=== PATIENT | female | born 1995 | race Two or more races ===

== ENCOUNTER 2025-01-26 08:42 | Inpatient (IN) | payer MEDICAID ==
[2025-01-24 15:14] LABS: Hematocrit 40.9 % (36.0-46.0); Hemoglobin 14.0 g/dL (12.2-16.2); Mean Corpuscular Hemoglobin 30.7 pg (28.0-32.0); Mean Corpuscular Volume 89.7 fL (80.0-100.0); Nucleated Red Blood Cells % 0.1 %; Urine Protein, UAD Negative (Negative)
[2025-01-24 15:33] LABS: INR 0.95 (0.9-1.15); Partial Thromboplastin Time 26.5 SEC (24.5-34.5); Prothrombin Time 10.1 sec (9.3-11.8)
[2025-01-24 15:49] LABS: Alanine Aminotransferase 17 U/L (7-40); Albumin 4.8 g/dL (3.2-4.8); Alkaline Phosphatase 77 U/L (46-116); Anion Gap 10 (5-15); BUN/Creatinine Ratio 10.3 (10.0-20.0); Blood Urea Nitrogen 9 mg/dL (9-23); Calcium 9.8 mg/dL (8.7-10.4); Carbon Dioxide 27 mmol/L (20-31); Chloride 104 mmol/L (98-107); Potassium 4.2 mmol/L (3.5-5.1); Sodium 141 mmol/L (136-145); Total Protein 8.1 g/dL (5.7-8.2)
[2025-01-24 15:50] LABS: Bilirubin, Total 0.3 mg/dL (0.2-1.0); Glucose 89 mg/dL (74-106)
[~2025-01-26] VITALS: Ht 154.9 cm; Wt 99.6 kg
[~2025-01-26 08:42] MED LIST: CHOLCAP4 PO
[2025-01-26] MEDS: ceFAZolin 2 GM/D5W50ml 50 ML IV ONE (08:55)
[2025-01-26] MEDS ORDERED: MIDAZOLAM HCL 2MG/2ML 2ml VIAL (1mg/ml) ONE (10:45)
[2025-01-26] MEDS ORDERED: HYDROmorphone HCL 2 MG/ML VL/or syr ONE (10:45)
[2025-01-26] MEDS ORDERED: fentaNYL CITRATE 100 MCG/2 ML VL ONE (10:45)
[2025-01-26] MEDS ORDERED: LIDOCAINE 2% (LOCAL ANESTH.) PF 5ml SDV ONE (10:46)
[2025-01-26] MEDS ORDERED: PROPOFOL 10 MG/ML 20 ML IV ONE (10:46)
[2025-01-26] MEDS ORDERED: KETOROLAC TROMETH 30 MG/ML 1ML VIAL ONE (10:46)
[2025-01-26] MEDS ORDERED: ONDANSETRON HCL 4 MG/2 ML VIAL ONE (10:46)
[2025-01-26] MEDS ORDERED: GLYCOPYRROLATE 0.2 MG/ML 1ML VIAL ONE (10:46)
[2025-01-26] MEDS ORDERED: SUGAMMADEX 200mg/2ml Vial (100MG/ML) IV ONE (12:37)
[2025-01-26] MEDS: LIDOCAINE W/ EPINEPHRINE 1% 20ML VIAL ONE (12:37)
[2025-01-26] MEDS: BUPIVACAINE 0.5% P/F INJ 10 ML VIAL ONE (12:37)
[2025-01-26 12:58] VITALS: O2SAT 100
[2025-01-26] MEDS ORDERED: ONDANSETRON HCL 4 MG/2 ML VIAL IV PRN ×2 (13:15→17:00)
[2025-01-26] MEDS ORDERED: HYDROmorphone HCL 2 MG/ML VL/or syr IV PRN (13:15)
[2025-01-26] MEDS ORDERED: ACETAMINOPHEN IV 1000 MG/100ML (10MG/ML) IV ONE (13:15)
--- NOTE | 2025-01-26 13:36 | DVHOP ---
DATE OF SURGERY: 01/26/2025 PREOPERATIVE DIAGNOSES: * Cholelithiasis. * Cholecystitis POSTOPERATIVE DIAGNOSES: * Cholelithiasis. * Cholecystitis. SURGEON: Olivier Corley MD. SALES AND SERVICE ADVISOR: Homero Ashley. ANESTHESIA: General endotracheal, Dr. Rico. PROCEDURES: * Laparoscopy. * Laparoscopic cholecystectomy DESCRIPTION OF PROCEDURE: Under general endotracheal anesthesia with the patient's skin prepped and draped, a supraumbilical incision was made and Veress needle inserted into the peritoneal cavity by the hanging drop technique in order to establish pneumoperitoneum to 15 mmHg pressure by insufflation with carbon dioxide. With the abdomen fully distended, the needle was removed and replaced by a 5 mm trocar port through which a 0-degree viewing laparoscope was inserted and under direct vision, a 5 mm port was inserted through the anterior axillary line on the right flank at the level of the umbilicus and through the subxiphoid skin in the midline. Respectively, a 10 mm port inserted through that incision. Instrumentation was introduced. Laparoscopy was performed revealing no obvious unexpected pathology. The gallbladder was placed on tension. The cystic duct and cystic artery were identified, circumferentially dissected, skeletonized and traced into the hepatic or cystic triangle to minimize the potential for inadvertent injury to the common bile duct. The cystic duct and cystic artery were then divided between metallic clips close to the gallbladder again attempting to avoid any injury to the common bile duct. Following division of the cystic duct and cystic artery, the gallbladder was resected from its liver bed with electrocautery and traction. The fully mobilized gallbladder was removed from the peritoneal cavity by placement in a specimen extraction bag, which was removed through the subxiphoid midline 10 mm port sites. The right upper quadrant was then irrigated. Irrigant was aspirated. Hemostasis was meticulously accomplished and found to be complete. At the termination of the procedure, there was no evidence of bleeding from either the liver bed or from the port sites. Instrumentation was then withdrawn. Pneumoperitoneum was evacuated. Fascial defect closed using #0 Vicryl. The wound was approximated using Monocryl sutures, Dermabond, glue and Steri-Strips. The patient remained stable throughout the procedure and left the operating room following an accurate needle and sponge count. Her , Ten, was thoroughly informed in the waiting area. MD SUSIE Rascon/NATAN TID: [id number] RECEIPT: [id number]
[2025-01-26] MEDS ORDERED: ceFAZolin 1GM/50ML 50 ML IV SCH (14:00)
[2025-01-26] MEDS ORDERED: MORPHINE SULFATE INJ 2 MG/ml SYRG IV PRN (14:30)
[2025-01-26] MEDS ORDERED: NITROGLYCERIN 0.4 MG SL TAB SL PRN (14:30)
[2025-01-26 16:45] VITALS: BP 111/70; PULSE 104; RESP 18; TEMP 98.8; O2SAT 100
--- NOTE | 2025-01-26 16:50 | DVHHP2 ---
Review of Systems Allergies: Coded Allergies: NO KNOWN ALLERGIES (Unverified , 01/24/25) Medications Current Medications Medications Dose Ordered Sig/Lucila Route Start Time Stop Time Status Last Admin Dose Admin Metronidazole 100 ml @ 100 mls/hr Q8HR IV 01/26/25 14:00 01/26/25 13:43 100 MLS/HR Potassium Chloride/Dextrose/ Sod Cl 1,000 ml @ 100 mls/hr Q10H IV 01/26/25 15:00 Cefazolin Sodium 50 ml @ 100 mls/hr Q8HR IV 01/26/25 20:00 Nitroglycerin 0.4 mg Q5MINP PRN SL 01/26/25 14:30 Morphine Sulfate 2 mg Q30M PRN IV 01/26/25 14:30 Exam Vital Signs Vital Signs Date Time Temp Pulse Resp B/P (MAP) Pulse Ox O2 Delivery O2 Flow Rate FiO2 01/26/25 14:35 83 14 123/79 (94) 100 01/26/25 14:35 Nasal Cannula 2.0 100 01/26/25 12:58 98.2 98.2 Labs/Xrays Labs Test 01/24/25 14:59 Range/Units White Blood Count 11.0 H 4.4-10.8 10^3/uL Red Blood Count 4.56 4.0-5.20 10^6/uL Hemoglobin 14.0 12.2-16.2 g/dL Hematocrit 40.9 36.0-46.0 % Mean Corpuscular Volume 89.7 80.0-100.0 fL Mean Corpuscular Hemoglobin 30.7 28.0-32.0 pg Mean Corpuscular Hemoglobin Concent 34.2 32.0-36.0 g/dL Red Cell Distribution Width 13.6 11.8-14.3 % Platelet Count 214 140-450 10^3/uL Mean Platelet Volume 11.6 H 6.9-10.8 fL Neutrophils (%) (Auto) 61.5 37.0-80.0 % Lymphocytes (%) (Auto) 28.9 10.0-50.0 % Monocytes (%) (Auto) 6.6 0.0-12.0 % Eosinophils (%) (Auto) 2.4 0.0-7.0 % Basophils (%) (Auto) 0.6 0.0-2.0 % Neutrophils # (Auto) 6.7 1.6-8.6 10 ^3/uL Lymphocytes # (Auto) 3.2 0.4-5.4 10 ^3/uL Monocytes # (Auto) 0.7 0-1.3 10 ^3/uL Eosinophils # (Auto) 0.3 0-0.8 10 ^3/uL Basophils # (Auto) 0.1 0-0.2 10 ^3/uL Nucleated Red Blood Cells 0.1 % Prothrombin Time 10.1 9.3-11.8 sec Prothrombin Time INR 0.95 0.9-1.15 Activated Partial Thromboplast Time 26.5 24.5-34.5 SEC Urine Color Light-yellow Yellow Urine Clarity Clear Clear Urine pH 7.0 5.0-9.0 Urine Specific [place] 1.021 1.001-1.035 Urine Protein Negative Negative Urine Ketones Negative Negative Urine Blood Negative Negative /uL Urine Nitrite Negative Negative Urine Bilirubin Negative Negative Urine Urobilinogen Normal Negative mg/dL Urine Leukocyte Esterase Negative Negative /uL Urine RBC 1 0 - 4 /hpf Urine Microscopic WBC 5 0-5 /HPF Urine Squamous Epithelial Cells Few <5 /hpf Urine Bacteria None seen None Seen /hpf Urine Glucose Normal Normal mg/dL Urine Test Negative Negative Sodium Level 141 136-145 mmol/L Potassium Level 4.2 3.5-5.1 mmol/L Chloride Level 104 98-107 mmol/L Carbon Dioxide Level 27 20-31 mmol/L Anion Gap 10 5-15 Blood Urea Nitrogen 9 9-23 mg/dL Creatinine 0.87 0.550-1.02 mg/dL Glomerular Filtration Rate Calc 91 >90 mL/min BUN/Creatinine Ratio 10.3 10.0-20.0 Serum Glucose 89 74-106 mg/dL Calcium Level 9.8 8.7-10.4 mg/dL Total Bilirubin 0.3 0.2-1.0 mg/dL Aspartate Amino Transferase (AST) 17 13-40 U/L Alanine Aminotransferase (ALT) 17 7-40 U/L Alkaline Phosphatase 77 46-116 U/L Total Protein 8.1 5.7-8.2 g/dL Albumin 4.8 3.2-4.8 g/dL SEPSIS Sepsis Screen Physician Orders Sequential Compression Device (01/26/25 12:51) Abdominal Binder (01/26/25 12:51) Call/Page Hospitalist/Atten Fo (01/26/25 12:51) Page Hospitalist For Admission (01/26/25 12:51) Metronidazole 500mg/100ml (Flagyl 500mg/ (01/26/25 14:00) Oxygen Via Cool Mist Mask (01/26/25 12:51) Clear Liq Diet (01/26/25 Lunch) Ambulate Every 4hours Q4H (01/26/25 12:51) Oxygen By Face Mask (01/26/25 13:01) Threader (01/26/25 13:01) Notify Anesth. For Changes: (01/26/25 13:01) Pulse Ox Assessment (01/26/25 13:01) May Have Head Of Bed Up (01/26/25 13:01) Discharge To Room Per Criteria (01/26/25 13:01) D5w/Sod Chl 0.45%/Kcl 20meq (01/26/25 15:00) Cefazolin 1gm/50ml (Ancef) (01/26/25 20:00) Admit (01/26/25 14:24) Oxygen By Nasal Cannula (01/26/25 14:24) Nitroglycerin Sublingual (Ntrostat Subli (01/26/25 14:30) Morphine Sulfate Injection (01/26/25 14:30) Stat Ekg For Chest Pain (01/26/25 14:24) Notify Md Of Changes From Base (01/26/25 14:24) Emergency Dysrhythmia Protocol (01/26/25 14:24) Hydrocodone-Acet 5/325mg Tab ([place] 5/32 (01/26/25 17:00) Acetaminophen Tablet (Tylenol Tablet) (01/26/25 17:00) Ondansetron Hcl (Zofran) (01/26/25 17:00) Complete Blood Count (01/27/25 06:00) Comprehensive Metabolic Panel (01/27/25 06:00) Vital Signs Date Time Temp Pulse Resp B/P (MAP) Pulse Ox O2 Delivery O2 Flow Rate FiO2 01/26/25 14:35 83 14 123/79 (94) 100 01/26/25 14:35 Nasal Cannula 2.0 100 01/26/25 14:21 Nasal Cannula 2.0 98 01/26/25 14:15 69 14 122/78 (93) 98 01/26/25 13:58 67 14 128/71 (90) 97 01/26/25 13:47 Room Air 0 91 01/26/25 13:43 76 14 128/80 (96) 95 01/26/25 13:28 86 11 130/99 (109) 96 01/26/25 13:25 Room Air 0 96 01/26/25 13:13 103 18 141/84 (103) 98 01/26/25 13:08 104 17 131/79 (96) 100 01/26/25 13:03 106 12 121/80 (94) 100 01/26/25 12:58 98.2 115 12 137/78 (97) 100 98.2 01/26/25 12:58 100 Mask 8.0 Medications Medications Dose Ordered Sig/Lucila Route Start Time Stop Time Status Last Admin Dose Admin Bupivacaine HCl 10 ml STK-MED ONCE .ROUTE 01/26/25 11:26 01/26/25 11:23 DC 01/26/25 12:37 5 ML Lidocaine/ Epinephrine 20 ml STK-MED ONCE .ROUTE 01/26/25 11:27 01/26/25 11:23 DC 01/26/25 12:37 5 ML Metronidazole 100 ml @ 100 mls/hr Q8HR IV 01/26/25 14:00 01/26/25 13:43 100 MLS/HR Assessment/Plan Assessment/Plan SEE DICTATED NOTE Plan discussed with: Patient My Orders Orders - FEDERICA MONZON MD Procedure Category Date Status Time Admit ADMIT 01/26/25 Transmitted 14:24 Oxygen By Nasal RT 01/26/25 Transmitted Cannula 14:24 Nitroglycerin PHA 01/26/25 In Process Sublingual (Ntrostat 14:30 Morphine Sulfate PHA 01/26/25 In Process Injection 14:30 Stat Ekg For Chest ARNOL 01/26/25 In Process Pain 14:24 Notify Md Of Changes ARNOL 01/26/25 In Process From Base 14:24 Emergency Dysrhythmia ARNOL 01/26/25 In Process Protocol 14:24 Hydrocodone-Acet PHA 01/26/25 Verified 5/325mg Tab ([place] 17:00 Acetaminophen Tablet PHA 01/26/25 Verified (Tylenol Tablet) 17:00 Ondansetron Hcl PHA 01/26/25 Verified (Zofran) 17:00 Complete Blood Count LAB 01/27/25 Verified 06:00 Comprehensive LAB 01/27/25 Verified Metabolic Panel 06:00 Date of Service: Jan 26, 2025 Billing Provider: FEDERICA MONZON MD Common Visit Codes: [id number] INP/OBS CARE (HIGH) FEDERICA MONZON MD Jan 26, 2025 16:50
[2025-01-26] MEDS ORDERED: HYDROcodone-ACET 5/325MG TAB PO PRN (17:00)
--- NOTE | 2025-01-26 17:00 | DVHHP ---
ADMIT DATE: 01/26/2025 HISTORY OF PRESENT ILLNESS: The patient is a 29-year-old lady who was admitted after she underwent laparoscopic cholecystectomy for cholelithiasis and chronic cholecystitis. PAST MEDICAL HISTORY: The patient had no significant history except for . MEDICATIONS: She takes no regular prescription medications. ALLERGIES: No known drug allergies. SOCIAL HISTORY: No smoking or alcohol. Lives at home with her . FAMILY HISTORY: Negative. PHYSICAL EXAMINATION: GENERAL: The patient is awake, alert. VITAL SIGNS: Temperature of 98.2, pulse of 69 per minute, blood pressure 122/78. SHEENT: Unremarkable. NECK: There is no JVD or pedal edema. LUNGS: Equal bilaterally. No added sounds. CARDIOVASCULAR: S1 and S2 is regular. No murmurs. ABDOMEN: Soft. Bowel sounds are hypoactive. NEUROLOGIC: Nonfocal. MUSCULOSKELETAL: Normal. ASSESSMENT AND PLAN: * Obesity. * Status post laparoscopic cholecystectomy for cholelithiasis and chronic cholecystitis. The patient will be placed on pain medications and IV fluids. Paulino Ashley MD JLN/EKT TID: [id number] RECEIPT: [id number]
[2025-01-26] MEDS: D5W/SOD CHL 0.45%/KCL 20MEQ 1,000 ML IV SCH (17:11)
[2025-01-26] MEDS: ceFAZolin 1GM/50ML 50 ML IV SCH (20:11)
[2025-01-26 21:00] VITALS: BP 112/66; PULSE 74; RESP 17; TEMP 97.4; O2SAT 94
[2025-01-27] MEDS: ACETAMINOPHEN 325 MG TAB PO PRN (00:32)
[2025-01-27 01:00] VITALS: BP 111/71; PULSE 67; RESP 18; TEMP 97.2; O2SAT 99
[2025-01-27 05:00] VITALS: BP 108/60; PULSE 60; RESP 17; TEMP 97.1; O2SAT 99
[2025-01-27 06:42] LABS: Hematocrit 40.7 % (36.0-46.0); Hemoglobin 13.3 g/dL (12.2-16.2); Mean Corpuscular Hemoglobin 29.6 pg (28.0-32.0); Mean Corpuscular Volume 90.7 fL (80.0-100.0); Nucleated Red Blood Cells % 0.0 %
[2025-01-27 07:11] LABS: Alanine Aminotransferase 26 U/L (7-40); Albumin 4.1 g/dL (3.2-4.8); Alkaline Phosphatase 68 U/L (46-116); Anion Gap 10 (5-15); Calcium 9.2 mg/dL (8.7-10.4); Carbon Dioxide 25 mmol/L (20-31); Total Protein 7.0 g/dL (5.7-8.2)
[2025-01-27 07:12] LABS: Bilirubin, Total 0.4 mg/dL (0.2-1.0)
[2025-01-27 07:15] LABS: BUN/Creatinine Ratio 7.8 (10.0-20.0); Blood Urea Nitrogen < 5 mg/dL (9-23); Chloride 104 mmol/L (98-107); Glucose 146 mg/dL (74-106); Potassium 4.4 mmol/L (3.5-5.1); Sodium 139 mmol/L (136-145)
[2025-01-27 08:05] VITALS: PULSE 66; RESP 16; O2SAT 98
--- NOTE | 2025-01-27 08:53 | DVHDS2 ---
Discharge Summary Date of Admission Jan 26, 2025 at 14:24 Date of Discharge: Jan 27, 2025 Labs/Diagnostic Data: Laboratory Results Test 01/27/25 05:04 01/24/25 14:59 White Blood Count 13.6 10^3/uL (4.4-10.8) Red Blood Count 4.48 10^6/uL (4.0-5.20) Hemoglobin 13.3 g/dL (12.2-16.2) Hematocrit 40.7 % (36.0-46.0) Mean Corpuscular Volume 90.7 fL (80.0-100.0) Mean Corpuscular Hemoglobin 29.6 pg (28.0-32.0) Mean Corpuscular Hemoglobin Concent 32.7 g/dL (32.0-36.0) Red Cell Distribution Width 13.2 % (11.8-14.3) Platelet Count 224 10^3/uL (140-450) Mean Platelet Volume 11.7 fL (6.9-10.8) Neutrophils (%) (Auto) 85.5 % (37.0-80.0) Lymphocytes (%) (Auto) 10.1 % (10.0-50.0) Monocytes (%) (Auto) 4.4 % (0.0-12.0) Eosinophils (%) (Auto) 0.0 % (0.0-7.0) Basophils (%) (Auto) 0.0 % (0.0-2.0) Neutrophils # (Auto) 11.6 10 ^3/uL (1.6-8.6) Lymphocytes # (Auto) 1.4 10 ^3/uL (0.4-5.4) Monocytes # (Auto) 0.6 10 ^3/uL (0-1.3) Eosinophils # (Auto) 0 10 ^3/uL (0-0.8) Basophils # (Auto) 0 10 ^3/uL (0-0.2) Nucleated Red Blood Cells 0.0 % Sodium Level 139 mmol/L (136-145) Potassium Level 4.4 mmol/L (3.5-5.1) Chloride Level 104 mmol/L (98-107) Carbon Dioxide Level 25 mmol/L (20-31) Anion Gap 10 (5-15) Blood Urea Nitrogen < 5 mg/dL (9-23) Creatinine 0.64 mg/dL (0.550-1.02) Glomerular Filtration Rate Calc 121 mL/min (>90) BUN/Creatinine Ratio 7.8 (10.0-20.0) Serum Glucose 146 mg/dL (74-106) Calcium Level 9.2 mg/dL (8.7-10.4) Total Bilirubin 0.4 mg/dL (0.2-1.0) Aspartate Amino Transferase (AST) 28 U/L (13-40) Alanine Aminotransferase (ALT) 26 U/L (7-40) Alkaline Phosphatase 68 U/L (46-116) Total Protein 7.0 g/dL (5.7-8.2) Albumin 4.1 g/dL (3.2-4.8) Prothrombin Time 10.1 sec (9.3-11.8) Prothrombin Time INR 0.95 (0.9-1.15) Activated Partial Thromboplast Time 26.5 SEC (24.5-34.5) Urine Color Light-yellow (Yellow) Urine Clarity Clear (Clear) Urine pH 7.0 (5.0-9.0) Urine Specific [place] 1.021 (1.001-1.035) Urine Protein Negative (Negative) Urine Ketones Negative (Negative) Urine Blood Negative /uL (Negative) Urine Nitrite Negative (Negative) Urine Bilirubin Negative (Negative) Urine Urobilinogen Normal mg/dL (Negative) Urine Leukocyte Esterase Negative /uL (Negative) Urine RBC 1 /hpf (0 - 4) Urine Microscopic WBC 5 /HPF (0-5) Urine Squamous Epithelial Cells Few /hpf (<5) Urine Bacteria None seen /hpf (None Seen) Urine Glucose Normal mg/dL (Normal) Urine Test Negative (Negative) Other Laboratory Tests 01/27/25 05:04 Brief Hx & Hospital Course: see dictated note Condition at Discharge: Good Final Diagnosis/Problems List lap vignesh Discharge Disposition: Home Discharge Instruct/Medications Diet: Cardiac 2g Na,low cholest Activity: No Restrictions, As Tolerated Follow Up/Referral: schedule appt with dr Corley in 1 wk Medications: resume home meds script to pharmacy [facility] home if ok with dr Corley Scheduled Cholecalciferol (D3-50), Unknown Dose PO Q7D, (Reported) Discharge Statement: "Patient was advised to return to the ER or call 911 if any headaches, dizziness, shortness of breath, chest pain, abdominal pain, bleeding, fevers, or worsening of medical condition. Patient was counseled about treatment plan, medications, possible side effects, patientverbalized understanding. All questions were answered to the best of my ability. This discharge took greater then 30 minutes in planning, reviewing documentation, counseling the patient, and discussing with other team members." ASSESSMENT ASSESSMENT Assessment erendira medellin Date of Service: Jan 27, 2025 Billing Provider: FEDERICA MONZON MD Common Visit Codes: [id number] DISCH DAY >30min FEDERICA MONZON MD Jan 27, 2025 08:53
[2025-01-27] MEDS ORDERED: HYDR1TAB97 PO (08:55)
[2025-01-27] MEDS ORDERED: DOCU-94 PO (08:55)
[2025-01-27] MEDS ORDERED: CEPH500T PO (08:55)
[2025-01-27 09:00] VITALS: BP 114/70; PULSE 66; RESP 16; TEMP 98.6; O2SAT 98
--- NOTE | 2025-01-27 09:03 | DVHDS ---
DATE OF DISCHARGE: 01/27/2025 HISTORY OF PRESENT ILLNESS: The patient is a 29-year-old lady who was admitted after she underwent surgery for cholelithiasis and chronic cholecystitis. HOSPITAL COURSE: The patient did well postoperatively. She is tolerating oral diet. The patient's liver functions are within normal limits. She will now be discharged if cleared by Surgery to be on [place] p.r.n. for pain, Keflex 500 mg t.i.d. for 7 days and Colace p.r.n. for constipation. She will follow up with Dr. Corley in 1 week. FINAL DIAGNOSES: Therefore, * Morbid obesity. * Status post laparoscopic cholecystectomy for cholecystitis and chronic cholecystitis. Time spent in discharge planning and review of plan with the patient and her at bedside was 37 minutes. MD RAMIREZ Ray/HIEN TID: [id number] RECEIPT: [id number]
[2025-01-27 10:17] VITALS: BP 114/70; PULSE 66; RESP 16; TEMP 98.6; O2SAT 98
--- NOTE | 2025-01-27 11:46 | DVHPN2 ---
Progress Note Date Seen: Jan 27, 2025 Medical Necessity Reason Pt with a Central, PICC or Fol: No Objective vital signs Vital Sign Date Time Temp Pulse Resp B/P (MAP) Pulse Ox O2 Delivery O2 Flow Rate FiO2 01/27/25 10:17 98.6 66 16 98 01/27/25 09:00 114/70 (85) 01/26/25 20:00 Nasal Cannula* 2 28 Total Intake and Output 01/26/25 01/26/25 01/27/25 15:00 23:00 07:00 Intake Total 200 ml 150 ml 1700 ml Balance 200 ml 150 ml 1700 ml medications Current Medications Medications Dose Ordered Sig/Lucila Route Start Time Stop Time Status Last Admin Dose Admin Metronidazole 100 ml @ 100 mls/hr Q8HR IV 01/26/25 14:00 01/27/25 05:11 100 MLS/HR Potassium Chloride/Dextrose/ Sod Cl 1,000 ml @ 100 mls/hr Q10H IV 01/26/25 15:00 01/27/25 06:13 100 MLS/HR Cefazolin Sodium 50 ml @ 100 mls/hr Q8HR IV 01/26/25 20:00 01/27/25 06:13 100 MLS/HR Nitroglycerin 0.4 mg Q5MINP PRN SL 01/26/25 14:30 Morphine Sulfate 2 mg Q30M PRN IV 01/26/25 14:30 Acetaminophen/ Hydrocodone Bitart 1 tab Q6HPRN PRN PO 01/26/25 17:00 Acetaminophen 650 mg Q6HP PRN PO 01/26/25 17:00 01/27/25 00:32 650 MG Ondansetron HCl 4 mg Q6HPRN PRN IV 01/26/25 17:00 laboratory and microbiology Laboratory Tests 01/27/25 05:04 Test 01/27/25 05:04 Range/Units Serum Glucose 146 H 74-106 mg/dL Problem List/Assessment/Plan Problem List/Assessment/Plan 01/27/25 FEELS WELL, AMBULATING, EATING, LABS OK, AFEBRILE, ABOMEN SOFT AND APPROPRIATELY TENDER, WOUNDS OK, OK TO DISCHARGE Plan discussed with: Patient, Spouse GUALBERTO LOVERA MD Jan 27, 2025 11:46
== END 2025-01-27 11:50 | disposition home or self-care (01) | DRG 263 ==
LOC: SUR 08:42 → OVERFLOW 14:24 → CENTRAL 16:45
PROVIDERS: ADMIT Internal Medicine; ATTEND Internal Medicine
PROC: 0FT44ZZ Resection of Gallbladder, Percutaneous Endoscopic Approach (ICD-10-PCS; principal; 2025-01-26 11:49)
DX: K80.10 Calculus of gallbladder with chronic cholecystitis without obstruction (principal); E66.01 Morbid (severe) obesity due to excess calories; Z68.37 Body mass index [BMI] 37.0-37.9, adult; Z01.812 Encounter for preprocedural laboratory examination
CPT/HCPCS: 36415; 80053; 81001; 81025; 85025; 85610; 85730; 86850; 86900; 86901; G0378; J0131; J1100; J1885; J2003; J2250; J2405; J2704; J3490